=== PATIENT | male | born 1990 | race Caucasian/White ===

== ENCOUNTER 2018-10-17 21:38 | Emergency (ER) | payer OTHER ==
[~2018-10-17 21:38] MED LIST: ISOVUE-370 76%-LOCM 1 ML ONE
[2018-10-17 22:00] LABS: #Eosinphils 0.1 thou/uL (0.0-0.7); #Lymphocytes 1.6 thou/uL (1.20-3.40); #Monocytes 0.5 thou/uL (0.11-0.59); #Neutrophils 4.8 thou/uL (1.40-6.50); %Basophils 0.6 % (0.0-1.0); %Lymphocytes 22.5 % (21.0-51.0); %Monocytes 6.7 % (0.0-10.0); %Neutrophils 69.2 % (42.0-75.0); Hemoglobin 14.7 g/dL (14.0-18.0); Mean Corpuscular HGB CONC 33.8 g/dL (32.0-36.0); Mean Corpuscular Volume 82.7 fL (78.0-98.0); Mean Platelet Volume 6.8 fL (7.4-10.4); Platelet Count 234 thou/uL (130-400); RBC Distribution Width 11.9 % (11.5-14.5); Red Blood Cell (RBC) Count 5.26 mill/uL (4.70-6.10); White Blood Cell (WBC) Count 6.9 thou/uL (4.8-10.8)
[2018-10-17] MEDS ORDERED: Fentanyl 100 MCG/2 ML VIAL ONE (22:05)
[2018-10-17] MEDS ORDERED: Ketorolac Tromethamine 30 MG/ML VIAL ONE (22:05)
--- NOTE | 2018-10-17 22:16 | CT ---
CERVICAL SPINE CT SCAN WITHOUT IV CONTRAST: 10/17/18 HISTORY: Cervical spine injury following a fall from trauma. FINDINGS: No fracture or dislocation or other significant acute process. IMPRESSION: Unremarkable cervical spine CT. POS: [facility]
--- NOTE | 2018-10-17 22:18 | CT ---
BRAIN CT WITHOUT IV CONTRAST: 10/17/18 HISTORY: Injury secondary to a fall from trauma. FINDINGS: No focal mass or midline shift. No intra or extra-axial hemorrhage. Sinuses and mastoids are clear. IMPRESSION: No significant acute intracranial process. No mass or bleed. POS: [facility]
[2018-10-17 22:23] LABS: ALT (SGPT) 26 U/L (8-55); AST (SGOT) 22 U/L (5-34); Albumin 4.7 g/dL (3.5-5.0); Alkaline Phosphatase 82 U/L (40-150); Anion Gap 13 mmol/L (10-20); BUN (Urea Nitrogen) 11 mg/dL (8.9-20.6); Bilirubin, Total 0.4 mg/dL (0.2-1.2); Calc. Creatinine Clearance 0 mL/min (70-130); Calcium 9.9 mg/dL (7.8-10.44); Carbon Dioxide 26 mmol/L (22-29); Chloride 107 mmol/L (98-107); Estimated GFR-MDRD 90; Globulin 3.2 g/dL (2.4-3.5); Glucose 102 mg/dL (70-105); Protein, Total 7.9 g/dL (6.0-8.3); Sodium 142 mmol/L (136-145)
[2018-10-17 22:30] LABS: Bilirubin Negative (Negative); Blood, Urine Negative (Negative); Clarity CLEAR (Clear); Glucose, Urine (Dipstick) Negative (Negative); Leukocyte Negative (Negative); Nitrite Negative (Negative); Protein, Urine (Dipstick) Negative (Neg-Trace); Specific Gravity, Urine 1.004 (1.002-1.036); Urobilinogen 0.2 mg/dL (0.2-1.0); pH, Urine 6.5 (5.0-9.0)
--- NOTE | 2018-10-17 22:59 | CT ---
CHEST AND ABDOMEN AND PELVIC CT SCAN WITH IV CONTRAST THORACIC SPINE CT SCAN WITH IV CONTRAST LIMITED LUMBAR SPINE CT SCAN WITH IV CONTRAST LIMITED 10/17/18 HISTORY: Injury secondary to a fall from trauma. Chest, abdomen and pelvic CT scan with IV contrast. No mediastinal hematoma. The aorta is unremarkable. The aorta is unremarkable. No pneumothorax or ple ural effusion. In the abdomen, liver, gallbladder, pancreas, spleen, adrenal glands are unremarkable. The kidneys ar e unremarkable. No free intraperitoneal fluid or evidence of retroperitoneal hematoma. IMPRESSION: No significant acute posttraumatic process in the chest, abdomen, and pelvis. THORACIC SPINE CT SCAN WITH IV CONTRAST LIMITED: IMPRESSION: No fracture or dislocation or other acute process. LUMBAR SPINE CT SCAN WITH IV CONTRAST LIMITED: IMPRESSION: There is a disc osteophyte at T12-L1 with some associated mild central canal stenosis. No evidence fo r acute fracture or dislocation. The findings were discussed with Dr. Scales by phone at 10:12 p.m. Code CR POS: [facility]
[2018-10-18] MEDS ORDERED: Ibuprofen 800 MG TAB ONE (02:04)
[2018-10-18] MEDS ORDERED: HYDROcodone/Acetaminophen 5/325 mg Tablet ONE (02:04)
--- NOTE | 2018-10-18 08:59 | MRI ---
PRELIMINARY REPORT/[facility]/EMERGENTY AFTER-HOURS PROCEDURE MR Cervical Spine Without Contrast EXAM DATE/TIME: 10/18/2018 12:19 AM CLINICAL HISTORY: 28 years old, male; Injury or trauma; Fall; Work related; Initial encounter; Blunt trauma; Injury raquel e: 10/17/18; Injury details: M Morris presents to ed following 10 foot fall down a manhole. 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 Reports r arm numbness and lower back pain, reports parestheisas down r arm, denies lo ss of motor function. C/O RT shoulder and arm pain with numbness into hand around 1st and 2nd digits. No surgery. TECHNIQUE: Multiplanar magnetic resonance images of the cervical spine without contrast. COMPARISON: No relevant prior studies available. FINDINGS: Vertebrae: Normal lordosis. Normal marrow signal. Vertebral body heights are well-maintained. The aircraft refueller niocervical junction appears normal DISCS/SPINAL CANAL/NEURAL FORAMINA: C2-C3: No significant disc disease. No stenosis. C3-C4: No significant disc disease. No stenosis. C4-C5: No significant disc disease. No stenosis. C5-C6: No significant disc disease. No stenosis. C6-C7: No significant disc disease. No stenosis. C7-T1: No significant disc disease. No stenosis. Spinal cord: Normal signal. No cord compression. Vasculature: Normal flow voids in the vertebral arteries. Soft tissues: Unremarkable IMPRESSION: Unremarkable cervical spine MRI Thank you for allowing us to participate in the care of your patient. Dictated and Authenticated by: Maycol Keita MD 10/18/2018 1:33 AM Central Time ([place] & [place]) FINAL REPORT CERVICAL SPINE MRI WITHOUT CONTRAST: DATE: 10/18/2018. COMPARISON: None. HISTORY: Injury, trauma, pain. FINDINGS: I agree with the preliminary [facility] report dictated by Dr. Maycol Keita. The sagittal STIR imaging de monstrates no focal area of osseous marrow edema. No prevertebral soft tissue abnormality. Vertebra l body height and alignment appears within normal limits. No abnormal cord signal. No significant c entral canal or neural foraminal stenosis. IMPRESSION: No acute findings. POS: [facility]
== END 2018-10-18 02:16 | disposition home or self-care (01) ==
LOC: ERS 21:38
DX: S16.1XXA Strain of muscle, fascia and tendon at neck level, initial encounter (principal); M54.12 Radiculopathy, cervical region; M54.5 Low back pain; W17.89XA Other fall from one level to another, initial encounter; Y92.65 Oil rig as the place of occurrence of the external cause
CPT/HCPCS: 70450; 71260; 72125; 72141; 74177; 80053; 81003; 85025; 93005; 94760; 96361; 96374; G0390; J1885; J3010

== ENCOUNTER 2019-04-02 14:51 | Outpatient (CLI) | payer OTHER ==
--- NOTE | 2019-04-02 16:41 | MRI ---
MRI CERVICAL SPINE WITHOUT CONTRAST: 04/02/19 HISTORY: Neck pain. Paresthesia left upper extremity. COMPARISON: 10/18/18 FINDINGS: The vertebral body heights and marrow signal are maintained. No marrow edema is noted on the STIR miguel ges. There is a small focal disc protrusion at C5-6 level which is new since the last exam with impingemen t of the anterior thecal sac but no effacement or impingement of the spinal cord. No neural foraminal stenosis is seen. The paraspinal musculature is normal. The cervical spinal cord demonstrates normal course, caliber and signal. No cord edema, syringomyelia or myelomalacia is noted. No tonsillar her niation is seen. IMPRESSION: Small focal disc protrusion at C5-6 level without cord compression or neural foraminal stenosis. POS: [facility]
== END 2019-04-02 14:52 | disposition home or self-care (01) ==
LOC: BICMRI 14:51
PROVIDERS: ATTEND Family Medicine
DX: M54.2 Cervicalgia (principal); R20.2 Paresthesia of skin; M50.222 Other cervical disc displacement at C5-C6 level
CPT/HCPCS: 72141

== ENCOUNTER 2019-08-28 10:30 | Outpatient (CLI) | payer OTHER ==
--- NOTE | 2019-08-28 11:17 | RAD ---
8 views cervical spine: 08/28/2019 HISTORY: Right-sided radiculopathy FINDINGS: The cervicothoracic junction appears normal on the swimmer's lateral view. Open-mouth odont oid view is unremarkable. Frontal imaging demonstrates normal vertebral body height and alignment as does the bilateral oblique radiographs. A neutral lateral exam demonstrates no cervical anterolist hesis or retrolisthesis. Flexion imaging demonstrates minimal anterolisthesis at C3-4, C4-5, and C5-6, measuring less than 3 m m at all levels. No anterolisthesis or retrolisthesis noted on extension imaging. No prevertebral soft tissue swelling. IMPRESSION: No acute findings.
== END 2019-08-28 10:31 | disposition home or self-care (01) ==
LOC: BICRAD 10:30
PROVIDERS: ATTEND Family Medicine
DX: M54.12 Radiculopathy, cervical region (principal)
CPT/HCPCS: 72052